=== PATIENT | female | born 1985 | race African-American/Black ===

== ENCOUNTER 2017-11-08 17:32 | Emergency (ER) | payer BC ==
[~2017-11-08] VITALS: Ht 157.5 cm; Wt 70.5 kg
[~2017-11-08 17:32] MED LIST: LORTAB 5/500 501 TAB PO; NAPROSYN500 MG PO; NO HOME MEDICATIONS; ORTHO TRI-CYCLE1 TA1 PO; PERCOCET 5/321 UDTAB PO; PHENERGAN 25 TA25 MG PO; PRENATAL VITAMI1 TA5 PO; VICODIN 5/5001 UDTAB PO; ZOFRAN 4MG T4 MG/TAB PO
[2017-11-08 17:35] VITALS: BP 107/61; PULSE 65; TEMP 97.9
[2017-11-08] MEDS ORDERED: CLEOCIN HCL300 MG PO (18:00)
[2017-11-08] MEDS ORDERED: NORCO 325 MG-51 TAB PO (18:00)
== END 2017-11-08 18:25 | disposition home or self-care (01) ==
LOC: COL.ER 17:32
DX: K02.9 Dental caries, unspecified (principal); Z88.0 Allergy status to penicillin

== ENCOUNTER 2019-02-13 08:39 | Emergency (ER) | payer BC ==
[~2019-02-13] VITALS: Ht 154.9 cm; Wt 60.0 kg
[~2019-02-13 08:39] MED LIST changes: +CLEOCIN HCL300 MG PO; +NORCO 325 MG-51 TAB PO
[2019-02-13 08:45] VITALS: TEMP 98.6
[2019-02-13 09:31] LABS: BASO % 0.6 % (0.0-2.0); EOS # 0.2 (0.0-0.7); EOS % 2.8 % (0-4.0); GRAN # 4.7 (1.4-6.5); GRAN % 67.5 % (42.2-75.2); HEMATOCRIT 41.7 % (37.0-47.0); HEMOGLOBIN 14.1 g/dl (12.5-16.0); LYMPH # 1.5 (1.2-3.4); LYMPH % 21.5 % (20.0-51.0); MEAN CELL VOLUME 86 fl (80.0-100.0); MEAN CORPUSCULAR HEMOGLOBIN 29 pg (27.0-31.0); MEAN CORPUSCULAR HGB CONC 34 g/dl (33.0-37.0); MEAN PLATELET VOLUME 10.3 fl (7.4-10.4); MONO # 0.5 (0.1-0.6); MONO % 7.3 % (1.7-9.3); PLATELET COUNT 307 K/mm3 (130-400); RED BLOOD COUNT 4.84 M/mm3 (4.10-5.30); REDCELL DISTRIBUTION WIDTH-CV 13.2 % (11.5-14.5)
[2019-02-13 10:02] LABS: ALBUMIN 4.4 gm/dL (3.5-5.0); BILIRUBIN,TOTAL 0.5 mg/dL (0.0-1.0); CALCIUM 9.1 mg/dL (8.4-10.2); CREATININE, serum 0.67 (0.52-1.25); POTASSIUM 4.1 mmol/L (3.4-5.0); TOTAL PROTEIN 7.8 gm/dL (6.4-8.2)
[2019-02-13 10:32] LABS: COLLECTION METHOD CLEAN CATCH
[2019-02-13 10:52] LABS: MUCOUS Present /lpf; PH 6 (5-8); URINE APPEARANCE Clear; URINE BACTERIA None Seen /hpf; URINE BILIRUBIN Negative (NEGATIVE); URINE BLOOD 3+ (NEGATIVE); URINE COLOR Yellow; URINE GLUCOSE Negative (NEGATIVE); URINE KETONE Negative (NEGATIVE); URINE LEUKOCYTE ESTERASE Negative (NEGATIVE); URINE NITRATE Negative (NEGATIVE); URINE PROTEIN(semi-quant) Negative (NEGATIVE); URINE UROBILINOGEN Negative (NEGATIVE)
[2019-02-13 12:51] VITALS: BP 109/80; PULSE 68
== END 2019-02-13 12:51 | disposition home or self-care (01) ==
LOC: COL.ER 08:39
PROVIDERS: Emergency Medicine; Physician Assistant
DX: O20.0 Threatened abortion (principal); Z88.0 Allergy status to penicillin; Z98.890 Other specified postprocedural states; Z3A.01 Less than 8 weeks gestation of pregnancy
CPT/HCPCS: J2405; J7030